=== PATIENT | female | born 2005 | race Caucasian/White ===

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

== ENCOUNTER → 2025-05-09 15:33 | Outpatient (BNVA) | payer OTHER, SELFPAY | PROVIDERS: Visit Provider Student in an Organized Health Care Education/Training Program | DX: Z30.9 Encounter for contraceptive management, unspecified (principal) | CPT/HCPCS: 81025 ==

== ENCOUNTER 2025-08-09 00:24 | Emergency (ER) | payer SELFPAY ==
--- OUTSIDE RECORDS SUMMARY | 2014-09-26 01:15 | XMS_ITS | Continuity of Care Document ---
Author Organization [facility] Address [address] [place] [address] Phone Care Team Providers Care Fishing Tool Operator Name Role Phone Sierra Wagner Unavailable Unavailable Allergies, Adverse Reactions, Alerts Substance Reaction Status Criticality No Known allergies Medications Medication Instructions Dosage Effective Dates (start - stop) Status Comments Suprax 200 mg/5 mL oral suspension take 9 milliliter by oral route every day - Active Suprax 500 mg/5 mL oral suspension take 3.5 milliliter by oral route every day - No Longer Active Procedures Procedure Date Agt-immunassay Dir Obs; Strep 5 Offic/outpt E&m [facility] 5 Services provided in an urgent care cent er Advance Directives Directive Yes / No Effective Date File Name No Information Encounters Encounter Description Practice Location Reason(s) For Visit Diagnoses Date Provider Providers Copied on Encounter Offic/outpt E&m [facility] [place], [address], [place], [place], [id number], [place] tel:[phone] [facility] [place] STREP SORE THROAT 5 [address]. [address], [place], [id number], [place]. tel:[phone] Family History Family Member Type Diagnosis Age At Onset No Information Payers Payer name Insurance type Covered libertarian ID Authoriza tion(s) No Information Social History Type Description Quantity Date Captured Comments Alcohol Use Details Unknown Caffeine Use Details Unknown Tobacco Use Status No Information Smoking Status No Information Sex Female Vital Signs Date / Time: Height Weight BMI Pulse Rate Blood Pressure Temperature Respiratory Rate Body Surface Area Head Circumference Head Circ. Percentile Wt./Durga. Percentile BMI percentile Pulse Ox Inhaled Ox 8:48 AM 44.452 kg (98.00 lbs) 112 /min 99.20 F 98 % Chief Complaint And Reason For Visit From encounter dated '09/26/2014 07:15'. eye problem (chief complaint) Reason For Referral Reason For Referral No Information History Of Present Illness Encounter Date Complaint History Of Prese nt Illness No Information Functional Status Date Functional Assessmen t No Information Medications Administered Medication Instructions Dosage Effective Dates (start - stop) Status Comments Suprax 500 mg/5 mL oral suspension take 3.5 milliliter by oral route every day - No Longer Active Instructions Date Instruction Additional Infor mation No Information Assessments Type Assessment Date No Information Mental Status Date Cognitive Assessment Orientation - [place] ed to time, place, person, situation. Patient Care Teams Name Effective Dates (start - stop) Status Members No Information
--- NOTE | 2025-08-09 00:31 | ECG_ITS ---
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
[2025-08-09 00:32] VITALS: BP 142/83; PULSE 98; RESP 18; TEMP 36.8; O2SAT 100; BMI 33.6
--- NOTE | 2025-08-09 00:48 | XRR_ITS ---
PROCEDURE INFORMATION: Exam: XR Chest Exam date and time: 08/09/2025 12:53 AM Age: 19 years old Clinical indication: Pain; Angina pectoris; Additional info: Cp TECHNIQUE: Imaging protocol: Radiologic exam of the chest. Views: 1 view. COMPARISON: No relevant prior studies available. FINDINGS: Lungs: Unremarkable. No consolidation. Pleural spaces: Unremarkable. No pleural effusion. No pneumothorax. Heart/Mediastinum: Unremarkable. No cardiomegaly. Bones/joints: Unremarkable. XR/XR chest 1V portable [id number] IMPRESSION: No acute findings.
[2025-08-09 00:50] VITALS: BP 112/83; PULSE 101; O2SAT 100
--- NOTE | 2025-08-09 00:57 | ED_ITS ---
HPI - Chest Pain General: Chief Complaint: Chest Pain Stated Complaint: left shoulder arm and underpit pain Time Seen by Provider: 08/09/25 00:49 History of Present Illness: This 19-year-old female presented to the emergency department with chest pain that began approximately 1.5 hours prior to arrival, shortly after getting off work. The patient described the pain as located in the chest area with some radiation to the shoulder. Notably, the pain had completely resolved by the time of evaluation. She denied any previous episodes of similar pain. The patient reported no associated symptoms including cough, fever, or shortness of breath. She denied any recent illness, , or leg swelling. Related Data Previous Rx's ?Medication ?Instructions ?Recorded norethindrone 1 mg-ethinyl 1 tab PO DAILY #84 tabs estradiol 20 mcg (21)-iron 75 mg (7) tablet (Loestrin Fe 09/04 (28-Day)) sertraline 100 mg tablet See Rx Instructions .Route 0 05/09/25 .COMPLEX #45 tabs Allergies Allergy/AdvReac Type Severity Reaction Status Date / Time No Known Allergies Allergy Verified 08/09/25 00:37 [facility] ED 2 PFSH: Social History Smoking and tobacco/nicotine status: never used tobacco/nicotine Alcohol intake: never Physical Exam Const: COMMON NORMALS: no acute distress GENERAL APPEARANCE: cooperative; not ill appearing and not frail appearing HENMT: COMMON NORMALS: normocephalic, atraumatic and Normal external nose present HEAD & SCALP: normocephalic and atraumatic FACE & SINUS: normal facial exam and face symmetric NOSE: Normal external nose present Eye: COMMON NORMALS: Equal, round and reactive pupils present and EOMs intact bilaterally PUPIL: Yes Equal, round and reactive pupils present Neck/C-Spine: GENERAL: Yes trachea midline Chest: CHEST: Yes Symmetrical chest wall rise Resp: COMMON NORMALS: normal respiratory effort, No retractions, No use of accessory muscles and clear to auscultation bilaterally AUSCULTATION: clear to auscultation bilaterally Cardio: COMMON NORMALS: regular rate and regular rhythm RATE: regular rate RHYTHM: regular rhythm GI: COMMON NORMALS: Normal to inspection, nondistended, normoactive bowel sounds present Extremity: COMMON NORMALS: no pedal edema Neuro: RENITA COMA SCALE: document GCS findings [place] coma scale eye opening: Spontaneous [place] coma scale verbal response: Orientated Renita coma scale motor response: Obey commands [place] coma scale total score: 15 SENSORY EXAM: Yes extremities (intact) Psych: COMMON NORMALS: speech normal SPEECH: Yes normal speech Skin: COMMON NORMALS: no rashes or lesions noted GENERAL SKIN EXAM: no rashes or lesions noted Course Vital Signs: Vital signs: Vital Signs Temperature 98.3 F 08/09/25 00:32 Pulse Rate 91 08/09/25 01:15 Respiratory Rate 18 08/09/25 01:15 Blood Pressure 112/83 08/09/25 01:15 Pulse Oximetry 100 08/09/25 01:15 Oxygen Delivery Me thod Room Air 08/09/25 01:12 MDM - Chest Pain Medical Decision Making Resolved left-sided atypical chest discomfort in a healthy 19-year-old female. Since her pain is resolved, she is requesting no blood work. EKG was normal, as a mild heart rate elevation her vitals are stable. She is not hypoxic. Pain is resolved. Her chest x-ray is negative. She is stable for discharge. She will return for return of pain, any other concerns Lab Data Radiology Impressions Chest X-Ray 08/09/25 00:48 IMPRESSION: No acute findings. All radiology interpretation(s) finalized by discharge EKG Data EKG 1: Interpretation: EKG timed 0031, read 0033 reveals sinus tachycardia with a rate of 100. [place] is normal. Intervals are normal. No ST wave changes. QTc is 415. Discharge Plan Discharge Patient Disposition: Home Clinical Impression: Atypical chest pain Condition: Stable Prescriptions: No Action norethindrone-e.estradiol-iron [Loestrin Fe 09/04 (28-Day)] 1 mg-20 mcg (21)/75 mg (7) tablet 1 tab PO DAILY Qty: 84 1RF sertraline 100 mg tablet See Rx Instructions .ROUTE .COMPLEX Qty: 45 2RF Dose Instruction: TAKE ONE AND ONE-HALF TABLET BY MOUTH DAILY Rx Instructions: TAKE ONE AND ONE-HALF TABLET BY MOUTH DAILY Discharge Orders: Discharge ED (Routine); Ordered 08/09/25 Ordered By: Patrice Corrales Referrals: Hortensia Asher MD [Primary Care Provider, Pediatrics] - 4-7 days Patient Instructions: Chest Wall Pain (ED), Opioid Safety, Pain Management, Patient Portal & Barbara Instructions Activity Restrictions/Additional Instructions: Return for any return of your pain, shortness of breath, other concerning symptoms Print Language: Bulgarian Coding Level of Care Code ED Soda Dialyzer for Chg Fwd Heart Score HEART Score Components History: Slightly Suspicous EKG: Normal Age: Less than 45 yrs Risk Factors: No Risk Factors Known Troponin: Baseline Trop <16 ng/L (Not drawn) HEART Score RESULT HEART Score: 0
[2025-08-09 01:12] VITALS: BP 112/83; PULSE 94; RESP 18; O2SAT 100
[2025-08-09 01:15] VITALS: BP 112/83; PULSE 91; RESP 18; O2SAT 100
== END 2025-08-09 01:18 | disposition home or self-care (01) ==
PROVIDERS: Emergency Provider Emergency Medicine; PCP Student in an Organized Health Care Education/Training Program
DX: R07.89 Other chest pain (principal)
CPT/HCPCS: 71045; 93005; 99285